=== PATIENT | female | born 1990 | race American Indian/Alaskan Native ===

== ENCOUNTER 2016-04-24 04:20 | Inpatient (IN) | payer SELFPAY ==
[2016-04-24] MEDS ORDERED: ZOFRAN ODT ONE (04:35)
[2016-04-24 09:20] LABS: Alanine Aminotransferase 14 units/L (7-56); Albumin 3.8 g/dL (3.9-5); Albumin/Globulin Ratio 1.1 %; Alkaline Phosphatase 51 units/L (35-129); Amylase 97 units/L (27-131); BUN/Creatinine Ratio 13.33; Bilirubin,Total 0.6 mg/dL (0.1-1.2); Blood Urea Nitrogen 12 mg/dL (7-17); Carbon Dioxide 22 mmol/L (22-30); Chloride 99.5 mmol/L (98-107); Glucose 134 mg/dL (65-100); Potassium 3.7 mmol/L (3.6-5.0); Sodium 138 mmol/L (137-145); Total Protein 7.2 g/dL (6.3-8.2)
[2016-04-24 09:21] LABS: Anion Gap 20 mmol/L
[2016-04-24 09:33] LABS: Basophils % (Auto) 0.1 % (0.0-1.8); Eosinophils % (Auto) 0.2 % (0.0-4.3); Hematocrit 36.4 % (30.3-42.9); Mean Corpuscular HGB Conc 33 % (30-34); Mean Corpuscular Hemoglobin 30 pg (28-32); Mean Corpuscular Volume 90 fl (79-97); Platelet Count 277 K/mm3 (140-440); Red Blood Count 4.05 M/mm3 (3.65-5.03); Red Cell Distribution Width 14.4 % (13.2-15.2); White Blood Count 16.6 K/mm3 (4.5-11.0)
[2016-04-24 09:34] LABS: Bilirubin,Direct < 0.2 mg/dL (0-0.2); Bilirubin,Indirect 0.4 mg/dL
[2016-04-24 10:23] LABS: Bilirubin,Urine NEG (Negative); Blood,Urine NEG (Negative); Ketones,Urine 80 mg/dL (Negative); Leukocyte Esterase,Urine NEG (Negative); Mucus,Urine 3+ /HPF; Nitrite,Urine NEG (Negative); Urobilinogen,Urine < 2.0 mg/dL (<2.0)
[2016-04-24] MEDS ORDERED: DILAUDID IV ONE ×2 (11:03→12:40)
[2016-04-24] MEDS ORDERED: NACL 0.9% 1000 ML 1,000 ML IV ONE ×2 (11:03→14:02)
--- NOTE | 2016-04-24 11:05 | Emergency Department Report ---
ED General Adult HPI - General Chief complaint: Nausea/Vomiting/Diarrhea Time Seen by Provider: 04/24/16 10:54 Source: patient, family Mode of arrival: Wheelchair Limitations: No Limitations - History of Present Illness Initial comments: This is a 26-year-old female. She is previously unknown to me. Has a very distant history of chlamydia, which is diagnosed in 2003, on routine physical exam. The patient also has a past medical history ovarian cyst. The patient presents to the ER complaining of abdominal pain. Abdominal pain is in the left lower quadrant, suprapubic and right lower quadrant region. She describes it as sharp and shaking in nature. Mild nausea and vomiting. No fevers or chills. No chest pain or shortness of breath. No irritative or obstructive urinary symptoms. States this is different pain than when compared to her prior episodes of ovarian cysts. The patient reports that she is sexually active with 1 male partner. Denies a history of dyspareunia with said partner. -: Gradual Location: abdomen, pelvis Severity scale (0 -10): 7 Quality: aching Consistency: constant Improves with: medication, rest Worsens with: movement Associated Symptoms: loss of appetite, malaise, nausea/vomiting. denies: confusion, chest pain, cough, diaphoresis, fever/chills, shortness of breath, syncope, weakness - Related Data Allergies Allergy/AdvReac Type Severity Reaction Status Date / Time aspirin Allergy Anaphylaxis Verified 04/24/16 06:40 ibuprofen [From Motrin] Allergy Unknown Verified 04/24/16 06:40 naproxen [From Naprosyn] Allergy Vomiting Verified 04/24/16 06:40 vancomycin Allergy Unknown Verified 04/24/16 06:40 ED Review of Systems ROS: Stated complaint: Other details as noted in HPI Constitutional: malaise, weakness Eyes: denies: vision change ENT: denies: epistaxis Respiratory: denies: cough Cardiovascular: denies: palpitations Gastrointestinal: abdominal pain, nausea, vomiting Genitourinary: denies: urgency, dysuria Musculoskeletal: denies: back pain Skin: denies: lesions Neurological: denies: weakness Psychiatric: denies: anxiety ED Past Medical Hx - Past Medical History Hx Asthma: Yes - Surgical History Past Surgical History?: No ED Physical Exam - General Limitations: No Limitations General appearance: alert, in no apparent distress - Head Head exam: Present: atraumatic, normocephalic - Eye Eye exam: Present: normal appearance, PERRL, EOMI. Absent: nystagmus - ENT ENT exam: Present: normal exam, normal orophraynx, mucous membranes moist - Neck Neck exam: Present: normal inspection, full ROM. Absent: tenderness, meningismus - Respiratory Respiratory exam: Present: normal lung sounds bilaterally. Absent: respiratory distress, wheezes, rales, chest wall tenderness, accessory muscle use, decreased breath sounds - Cardiovascular Cardiovascular Exam: Present: regular rate, normal rhythm, normal heart sounds. Absent: bradycardia, tachycardia, systolic murmur, diastolic murmur, rubs, gallop - GI/Abdominal GI/Abdominal exam: Present: soft, tenderness, normal bowel sounds. Absent: distended, guarding, rebound, rigid, pulsatile mass - External exam: Present: normal external exam Speculum exam: Present: vaginal discharge, cervical discharge Bi-manual exam: Present: cervical motion tendernes, adnexal tenderness, uterine tenderness, other (there is cervical motion tenderness, bilateral adnexal tenderness) - Extremities Exam Extremities exam: Present: normal inspection, full ROM, normal capillary refill. Absent: tenderness, pedal edema, joint swelling, calf tenderness - Back Exam Back exam: Present: normal inspection, full ROM. Absent: tenderness, CVA tenderness (R), CVA tenderness (L), muscle spasm, paraspinal tenderness, vertebral tenderness - Neurological Exam Neurological exam: Present: alert, oriented X3, other (Extraocular movements intact. Tongue midline. No facial droop. Facial sensation intact to light touch in the V1, V2, V3 distribution bilaterally. 5 and 5 strength in 4 extremities.. Sensation is intact to light touch in 4 extremities.). Absent: motor sensory deficit - Psychiatric Psychiatric exam: Present: normal affect, normal mood - Skin Skin exam: Present: warm, dry, intact, normal color. Absent: rash ED Course Vital Signs 04/24/16 04/24/16 04/24/16 06:34 10:11 10:12 Temperature 98.4 F Pulse Rate 91 H 89 64 Respiratory 22 11 L 11 L Rate Blood Pressure 126/90 119/68 O2 Sat by Pulse 100 98 100 Oximetry 04/24/16 04/24/16 04/24/16 10:13 10:15 10:17 Temperature Pulse Rate 68 71 81 Respiratory 11 L 9 L 23 Rate Blood Pressure 119/68 107/58 107/58 O2 Sat by Pulse 100 99 97 Oximetry 04/24/16 04/24/16 04/24/16 10:19 10:27 10:29 Temperature 98.3 F Pulse Rate 75 Respiratory 16 16 Rate Blood Pressure 107/58 O2 Sat by Pulse 98 98 Oximetry 04/24/16 04/24/16 04/24/16 10:45 10:47 10:49 Temperature Pulse Rate 88 91 H 75 Respiratory 26 H 18 12 Rate Blood Pressure 98/56 98/56 98/56 O2 Sat by Pulse 98 99 Oximetry 04/24/16 04/24/16 04/24/16 10:51 10:53 10:55 Temperature Pulse Rate 91 H 125 H 75 Respiratory 11 L 11 L 12 Rate Blood Pressure 98/56 98/56 98/56 O2 Sat by Pulse 99 98 100 Oximetry 04/24/16 04/24/16 04/24/16 10:57 10:59 11:00 Temperature Pulse Rate 76 76 Respiratory 14 24 Rate Blood Pressure 98/56 98/56 123/72 O2 Sat by Pulse 99 99 97 Oximetry 04/24/16 04/24/16 04/24/16 11:01 11:03 11:05 Temperature Pulse Rate Respiratory Rate Blood Pressure 123/72 123/72 123/72 O2 Sat by Pulse 98 99 100 Oximetry 04/24/16 04/24/16 04/24/16 11:07 11:09 11:11 Temperature Pulse Rate Respiratory Rate Blood Pressure 123/72 123/72 123/72 O2 Sat by Pulse 99 98 97 Oximetry 04/24/16 04/24/16 04/24/16 11:13 11:15 11:17 Temperature Pulse Rate Respiratory Rate Blood Pressure 123/72 123/72 123/72 O2 Sat by Pulse 98 100 98 Oximetry 04/24/16 04/24/16 04/24/16 11:19 11:21 11:23 Temperature Pulse Rate Respiratory Rate Blood Pressure 123/72 123/72 147/78 O2 Sat by Pulse 95 100 100 Oximetry 04/24/16 04/24/16 04/24/16 11:25 11:27 11:29 Temperature Pulse Rate Respiratory Rate Blood Pressure 147/78 147/78 147/78 O2 Sat by Pulse 95 94 92 Oximetry 04/24/16 04/24/16 04/24/16 11:31 11:33 11:35 Temperature Pulse Rate Respiratory Rate Blood Pressure 147/78 147/78 147/78 O2 Sat by Pulse 100 98 94 Oximetry 04/24/16 04/24/16 04/24/16 11:37 12:30 12:31 Temperature Pulse Rate 56 L 62 Respiratory 11 L 9 L Rate Blood Pressure 147/78 120/70 120/70 O2 Sat by Pulse 98 99 99 Oximetry 04/24/16 04/24/16 04/24/16 12:33 12:35 12:37 Temperature Pulse Rate 63 70 68 Respiratory 19 15 13 Rate Blood Pressure 120/70 120/70 120/70 O2 Sat by Pulse 98 97 96 Oximetry 04/24/16 04/24/16 04/24/16 12:39 12:41 12:42 Temperature Pulse Rate 69 65 70 Respiratory 14 13 14 Rate Blood Pressure 120/70 120/70 120/70 O2 Sat by Pulse 96 96 99 Oximetry 04/24/16 04/24/16 04/24/16 12:43 15:17 15:19 Temperature Pulse Rate 73 Respiratory 16 13 Rate Blood Pressure 120/70 113/61 113/61 O2 Sat by Pulse 100 100 Oximetry 04/24/16 04/24/16 04/24/16 15:21 15:23 15:25 Temperature Pulse Rate 61 59 L 68 Respiratory 12 11 L 16 Rate Blood Pressure 113/61 113/61 113/61 O2 Sat by Pulse 99 100 100 Oximetry 04/24/16 04/24/16 04/24/16 15:27 15:29 15:31 Temperature Pulse Rate 61 61 79 Respiratory 8 L 11 L 13 Rate Blood Pressure 113/61 113/61 113/61 O2 Sat by Pulse 100 100 100 Oximetry 04/24/16 04/24/16 04/24/16 15:33 15:35 15:37 Temperature Pulse Rate 73 69 59 L Respiratory 10 L 16 12 Rate Blood Pressure 113/61 113/61 113/61 O2 Sat by Pulse 99 100 100 Oximetry 04/24/16 04/24/16 04/24/16 15:39 15:41 15:43 Temperature Pulse Rate 70 62 62 Respiratory 12 12 13 Rate Blood Pressure 113/61 113/61 113/61 O2 Sat by Pulse 100 100 100 Oximetry 04/24/16 04/24/16 04/24/16 15:45 15:47 15:49 Temperature Pulse Rate 62 63 70 Respiratory 15 13 10 L Rate Blood Pressure 113/61 120/70 120/70 O2 Sat by Pulse 97 99 100 Oximetry 04/24/16 04/24/16 04/24/16 15:51 15:53 15:55 Temperature Pulse Rate 69 74 72 Respiratory 10 L 11 L 12 Rate Blood Pressure 120/70 120/70 120/70 O2 Sat by Pulse 99 100 99 Oximetry 04/24/16 04/24/16 04/24/16 15:57 15:59 16:01 Temperature Pulse Rate 71 66 65 Respiratory 13 12 11 L Rate Blood Pressure 120/70 120/70 120/70 O2 Sat by Pulse 100 100 100 Oximetry 04/24/16 04/24/16 04/24/16 16:03 16:05 16:07 Temperature Pulse Rate 77 71 66 Respiratory 17 12 13 Rate Blood Pressure 120/70 120/70 120/70 O2 Sat by Pulse 99 98 100 Oximetry 04/24/16 04/24/16 04/24/16 16:09 16:11 16:13 Temperature Pulse Rate 69 70 74 Respiratory 12 14 15 Rate Blood Pressure 120/70 120/70 120/70 O2 Sat by Pulse 99 99 100 Oximetry 04/24/16 04/24/16 04/24/16 16:15 16:17 16:19 Temperature Pulse Rate 75 70 70 Respiratory 14 13 10 L Rate Blood Pressure 120/70 120/70 120/70 O2 Sat by Pulse 99 99 98 Oximetry 04/24/16 04/24/16 04/24/16 16:21 16:23 16:25 Temperature Pulse Rate 77 73 75 Respiratory 24 19 15 Rate Blood Pressure 120/70 120/70 120/70 O2 Sat by Pulse 100 99 99 Oximetry 04/24/16 04/24/16 04/24/16 16:27 16:29 16:31 Temperature Pulse Rate 75 73 72 Respiratory 18 18 19 Rate Blood Pressure 120/70 120/70 120/70 O2 Sat by Pulse 99 97 98 Oximetry - Reevaluation(s) Reevaluation #1: 04/24/16 12:55 Vital Signs 04/24/16 04/24/16 04/24/16 06:34 10:11 10:12 Temperature 98.4 F Pulse Rate 91 H 89 64 Respiratory 22 11 L 11 L Rate Blood Pressure 126/90 119/68 O2 Sat by Pulse 100 98 100 Oximetry 04/24/16 04/24/16 04/24/16 10:13 10:15 10:17 Temperature Pulse Rate 68 71 81 Respiratory 11 L 9 L 23 Rate Blood Pressure 119/68 107/58 107/58 O2 Sat by Pulse 100 99 97 Oximetry 04/24/16 04/24/16 04/24/16 10:19 10:27 10:29 Temperature 98.3 F Pulse Rate 75 Respiratory 16 16 Rate Blood Pressure 107/58 O2 Sat by Pulse 98 98 Oximetry Lab Results 04/24/16 04/24/16 04/24/16 Range/Units 04:40 04:40 09:23 WBC (4.5-11.0) K/mm3 RBC (3.65-5.03) M/mm3 Hgb (10.1-14.3) gm/dl Hct (30.3-42.9) % MCV (79-97) fl MCH (28-32) pg MCHC (30-34) % RDW (13.2-15.2) % Plt Count (140-440) K/mm3 Lymph % (Auto) (13.4-35.0) % Lares % (Auto) (0.0-7.3) % Eos % (Auto) (0.0-4.3) % Baso % (Auto) (0.0-1.8) % Lymph # (1.2-5.4) K/mm3 Lares # (0.0-0.8) K/mm3 Eos # (0.0-0.4) K/mm3 Baso # (0.0-0.1) K/mm3 Seg Neutrophils % (40.0-70.0) % Seg Neutrophils # (1.8-7.7) K/mm3 Sodium 138 (137-145) mmol/L Potassium 3.7 (3.6-5.0) mmol/L Chloride 99.5 (98-107) mmol/L Carbon Dioxide 22 (22-30) mmol/L Anion Gap 20 mmol/L BUN 12 (7-17) mg/dL Creatinine 0.9 (0.7-1.2) mg/dL Estimated GFR > 60 ml/min BUN/Creatinine Ratio 13.33 % Glucose 134 H (65-100) mg/dL Lactic Acid (0.7-2.0) mmol/L Calcium 9.0 (8.4-10.2) mg/dL Total Bilirubin 0.6 (0.1-1.2) mg/dL Direct Bilirubin < 0.2 (0-0.2) mg/dL Indirect Bilirubin 0.4 mg/dL AST 21 (5-40) units/L ALT 14 (7-56) units/L Alkaline Phosphatase 51 (35-129) units/L Total Protein 7.2 (6.3-8.2) g/dL Albumin 3.8 L (3.9-5) g/dL Albumin/Globulin Ratio 1.1 % Amylase 97 (27-131) units/L Lipase 17 (13-60) units/L Urine Color Yellow (Yellow) Urine Turbidity Clear (Clear) Urine pH 6.0 (5.0-7.0) Ur Specific [place] 1.027 (1.003-1.030) Urine Protein 30 mg/dl (Negative) mg/dL Urine Glucose (UA) Neg (Negative) mg/dL Urine Ketones 80 (Negative) mg/dL Urine Blood Neg (Negative) Urine Nitrite Neg (Negative) Urine Bilirubin Neg (Negative) Urine Urobilinogen < 2.0 (<2.0) mg/dL Ur Leukocyte Esterase Neg (Negative) Urine WBC (Auto) 2.0 (0.0-6.0) /HPF Urine RBC (Auto) 8.0 (0.0-6.0) /HPF U Epithel Cells (Auto) 2.0 (0-13.0) /HPF Urine Mucus 3+ /HPF Urine HCG, Qual (Negative) 04/24/16 04/24/16 04/24/16 Range/Units 09:26 11:05 11:15 WBC 16.6 H (4.5-11.0) K/mm3 RBC 4.05 (3.65-5.03) M/mm3 Hgb 12.0 (10.1-14.3) gm/dl Hct 36.4 (30.3-42.9) % MCV 90 (79-97) fl MCH 30 (28-32) pg MCHC 33 (30-34) % RDW 14.4 (13.2-15.2) % Plt Count 277 (140-440) K/mm3 Lymph % (Auto) 6.5 L (13.4-35.0) % Lares % (Auto) 5.9 (0.0-7.3) % Eos % (Auto) 0.2 (0.0-4.3) % Baso % (Auto) 0.1 (0.0-1.8) % Lymph # 1.1 L (1.2-5.4) K/mm3 Lares # 1.0 H (0.0-0.8) K/mm3 Eos # 0.0 (0.0-0.4) K/mm3 Baso # 0.0 (0.0-0.1) K/mm3 Seg Neutrophils % 87.3 H (40.0-70.0) % Seg Neutrophils # 14.5 H (1.8-7.7) K/mm3 Sodium (137-145) mmol/L Potassium (3.6-5.0) mmol/L Chloride (98-107) mmol/L Carbon Dioxide (22-30) mmol/L Anion Gap mmol/L BUN (7-17) mg/dL Creatinine (0.7-1.2) mg/dL Estimated GFR ml/min BUN/Creatinine Ratio % Glucose (65-100) mg/dL Lactic Acid 1.0 (0.7-2.0) mmol/L Calcium (8.4-10.2) mg/dL Total Bilirubin (0.1-1.2) mg/dL Direct Bilirubin (0-0.2) mg/dL Indirect Bilirubin mg/dL AST (5-40) units/L ALT (7-56) units/L Alkaline Phosphatase (35-129) units/L Total Protein (6.3-8.2) g/dL Albumin (3.9-5) g/dL Albumin/Globulin Ratio % Amylase (27-131) units/L Lipase (13-60) units/L Urine Color (Yellow) Urine Turbidity (Clear) Urine pH (5.0-7.0) Ur Specific [place] (1.003-1.030) Urine Protein (Negative) mg/dL Urine Glucose (UA) (Negative) mg/dL Urine Ketones (Negative) mg/dL Urine Blood (Negative) Urine Nitrite (Negative) Urine Bilirubin (Negative) Urine Urobilinogen (<2.0) mg/dL Ur Leukocyte Esterase (Negative) Urine WBC (Auto) (0.0-6.0) /HPF Urine RBC (Auto) (0.0-6.0) /HPF U Epithel Cells (Auto) (0-13.0) /HPF Urine Mucus /HPF Urine HCG, Qual Negative (Negative) Reevaluation #2: 04/24/16 12:55 and differential diagnosis: Pelvic inflammatory disease, ovarian cyst, ovarian torsion, tubo-ovarian abscess, appendicitis, colitis, diverticulitis, endometriosis Assessment and plan: 26-year-old female with mild diffuse abdominal pain and tenderness, bilateral gynecologic tenderness. Negative lactic acid, negative leukocytosis, pelvic ultrasound not consistent with torsion. Given normal lactic acid level, bilateral physical exam findings, normal pelvic ultrasound, clinically I think that ovarian torsion is very unlikely. wet prep did not demonstrate trichomoniasis. CT scan abdomen and pelvis is pending to exclude surgical disease. Patient's pain has been treated aggressively. Unfortunately, the patient is allergic/ intolerance to NSAIDs. That being said, I am very suspicious for pelvic inflammatory disease 04/24/16 12:59 Reevaluation #3: 04/24/16 13:58 CT scan of the abdomen and pelvis demonstrates no acute surgical disease. The appendix itself was not clearly identified, but there are no secondary signs of appendicitis. Patient has received multiple rounds of pain medication. She is still markedly tender, with some voluntary guarding. I highly suspect that the patient's most likely has pelvic inflammatory disease. However given physical exam findings, leukocytosis, inconclusive diagnostics, patient will be admitted for pain control, serial abdominal exams, Gen. surgery consultation and customer relationship specialist consultation Case is discussed with general surgery on-call, Dr. Vega, who will see the patient is a consult. Case is discussed with gynecology, Dr. Obando, she graciously accepts the patient to her service. Gentamicin, clindamycin, ampicillin 04/24/16 14:01 04/24/16 14:38 04/24/16 14:44 04/24/16 14:58 ED Medical Decision Making - Lab Data Result diagrams: 04/24/16 09:26 04/24/16 04:40 Vital Signs 04/24/16 04/24/16 04/24/16 06:34 10:11 10:12 Temperature 98.4 F Pulse Rate 91 H 89 64 Respiratory 22 11 L 11 L Rate Blood Pressure 126/90 119/68 O2 Sat by Pulse 100 98 100 Oximetry 0304/24/16 04/24/16 10:13 10:15 10:17 Temperature Pulse Rate 68 71 81 Respiratory 11 L 9 L 23 Rate Blood Pressure 119/68 107/58 107/58 O2 Sat by Pulse 100 99 97 Oximetry 04/24/16 04/24/16 04/24/16 10:19 10:27 10:29 Temperature 98.3 F Pulse Rate 75 Respiratory 16 16 Rate Blood Pressure 107/58 O2 Sat by Pulse 98 98 Oximetry Lab Results 04/24/16 04/24/16 04/24/16 Range/Units 04:40 04:40 09:23 WBC (4.5-11.0) K/mm3 RBC (3.65-5.03) M/mm3 Hgb (10.1-14.3) gm/dl Hct (30.3-42.9) % MCV (79-97) fl MCH (28-32) pg MCHC (30-34) % RDW (13.2-15.2) % Plt Count (140-440) K/mm3 Lymph % (Auto) (13.4-35.0) % Lares % (Auto) (0.0-7.3) % Eos % (Auto) (0.0-4.3) % Baso % (Auto) (0.0-1.8) % Lymph # (1.2-5.4) K/mm3 Lares # (0.0-0.8) K/mm3 Eos # (0.0-0.4) K/mm3 Baso # (0.0-0.1) K/mm3 Seg Neutrophils % (40.0-70.0) % Seg Neutrophils # (1.8-7.7) K/mm3 Sodium 138 (137-145) mmol/L Potassium 3.7 (3.6-5.0) mmol/L Chloride 99.5 (98-107) mmol/L Carbon Dioxide 22 (22-30) mmol/L Anion Gap 20 mmol/L BUN 12 (7-17) mg/dL Creatinine 0.9 (0.7-1.2) mg/dL Estimated GFR > 60 ml/min BUN/Creatinine Ratio 13.33 % Glucose 134 H (65-100) mg/dL Lactic Acid (0.7-2.0) mmol/L Calcium 9.0 (8.4-10.2) mg/dL Total Bilirubin 0.6 (0.1-1.2) mg/dL Direct Bilirubin < 0.2 (0-0.2) mg/dL Indirect Bilirubin 0.4 mg/dL AST 21 (5-40) units/L ALT 14 (7-56) units/L Alkaline Phosphatase 51 (35-129) units/L Total Protein 7.2 (6.3-8.2) g/dL Albumin 3.8 L (3.9-5) g/dL Albumin/Globulin Ratio 1.1 % Amylase 97 (27-131) units/L Lipase 17 (13-60) units/L Urine Color Yellow (Yellow) Urine Turbidity Clear (Clear) Urine pH 6.0 (5.0-7.0) Ur Specific [place] 1.027 (1.003-1.030) Urine Protein 30 mg/dl (Negative) mg/dL Urine Glucose (UA) Neg (Negative) mg/dL Urine Ketones 80 (Negative) mg/dL Urine Blood Neg (Negative) Urine Nitrite Neg (Negative) Urine Bilirubin Neg (Negative) Urine Urobilinogen < 2.0 (<2.0) mg/dL Ur Leukocyte Esterase Neg (Negative) Urine WBC (Auto) 2.0 (0.0-6.0) /HPF Urine RBC (Auto) 8.0 (0.0-6.0) /HPF U Epithel Cells (Auto) 2.0 (0-13.0) /HPF Urine Mucus 3+ /HPF Urine HCG, Qual (Negative) 04/24/16 04/24/16 04/24/16 Range/Units 09:26 11:05 11:15 WBC 16.6 H (4.5-11.0) K/mm3 RBC 4.05 (3.65-5.03) M/mm3 Hgb 12.0 (10.1-14.3) gm/dl Hct 36.4 (30.3-42.9) % MCV 90 (79-97) fl MCH 30 (28-32) pg MCHC 33 (30-34) % RDW 14.4 (13.2-15.2) % Plt Count 277 (140-440) K/mm3 Lymph % (Auto) 6.5 L (13.4-35.0) % Lares % (Auto) 5.9 (0.0-7.3) % Eos % (Auto) 0.2 (0.0-4.3) % Baso % (Auto) 0.1 (0.0-1.8) % Lymph # 1.1 L (1.2-5.4) K/mm3 Lares # 1.0 H (0.0-0.8) K/mm3 Eos # 0.0 (0.0-0.4) K/mm3 Baso # 0.0 (0.0-0.1) K/mm3 Seg Neutrophils % 87.3 H (40.0-70.0) % Seg Neutrophils # 14.5 H (1.8-7.7) K/mm3 Sodium (137-145) mmol/L Potassium (3.6-5.0) mmol/L Chloride (98-107) mmol/L Carbon Dioxide (22-30) mmol/L Anion Gap mmol/L BUN (7-17) mg/dL Creatinine (0.7-1.2) mg/dL Estimated GFR ml/min BUN/Creatinine Ratio % Glucose (65-100) mg/dL Lactic Acid 1.0 (0.7-2.0) mmol/L Calcium (8.4-10.2) mg/dL Total Bilirubin (0.1-1.2) mg/dL Direct Bilirubin (0-0.2) mg/dL Indirect Bilirubin mg/dL AST (5-40) units/L ALT (7-56) units/L Alkaline Phosphatase (35-129) units/L Total Protein (6.3-8.2) g/dL Albumin (3.9-5) g/dL Albumin/Globulin Ratio % Amylase (27-131) units/L Lipase (13-60) units/L Urine Color (Yellow) Urine Turbidity (Clear) Urine pH (5.0-7.0) Ur Specific [place] (1.003-1.030) Urine Protein (Negative) mg/dL Urine Glucose (UA) (Negative) mg/dL Urine Ketones (Negative) mg/dL Urine Blood (Negative) Urine Nitrite (Negative) Urine Bilirubin (Negative) Urine Urobilinogen (<2.0) mg/dL Ur Leukocyte Esterase (Negative) Urine WBC (Auto) (0.0-6.0) /HPF Urine RBC (Auto) (0.0-6.0) /HPF U Epithel Cells (Auto) (0-13.0) /HPF Urine Mucus /HPF Urine HCG, Qual Negative (Negative) - Radiology Data Radiology results: report reviewed, image reviewed Transvaginal ultrasound unremarkable. No evidence of ovarian torsion. No fibroids are noted. CT scan of the abdomen and pelvis with IV contrast. No definite evidence of appendicitis or other acute findings. bi lateral cystic changes are noted in the adnexa. Moderate volume of stool throughout the colon and cecum. The appendix is not definitely identified, but no radial graphic signs of appendicitis identified. Critical care attestation.: If time is entered above; I have spent that time in minutes in the direct care of this critically ill patient, excluding procedure time. ED Disposition Clinical Impression: Abdominal pain Disposition: OP ADMITTED IP TO THIS HOSP Is pt being admited?: Yes Does the pt Need Aspirin: No Condition: Good
--- NOTE | 2016-04-24 12:25 | Ultrasound Report ---
ULTRASOUND PELVIC COMPLETE ULTRASOUND TRANSVAGINAL HISTORY: Pelvic pain. TECHNIQUE: Transabdominal and transvaginal ultrasound with color and spectral doppler interrogation. Longitudinal and transverse real-time images of the pelvis demonstrate that the uterus and ovaries are present and in a normal location. They are of normal echogenicity, contour and size. The endometrium measures 9 mm. No pathologic changes in the adjacent tissues are noted. Spectral waveforms demonstrate perfusion to both ovaries. IMPRESSION: Unremarkable transabdominal and transvaginal pelvic ultrasounds.
--- NOTE | 2016-04-24 13:43 | Cat Scan Report ---
CT of the abdomen and pelvis with IV contrast. History: Abdominal pain, nausea, and vomiting. Findings: The liver, spleen, pancreas, and gallbladder are normal. The kidneys are normal in size and configuration with no evidence of mass or hydronephrosis. The uterus is slightly prominent and there are cystic changes in the adnexa bilaterally. No abnormal fluid collections are seen. The there is a moderate volume of stool throughout the colon especially in the cecum. There is a paucity of retroperitoneal fat. The appendix is not definitely identified, but no radiographic signs of appendicitis are seen. Impression: Suboptimal evaluation of the right lower quadrant as detailed above. No definite evidence of appendicitis or other acute findings. Please correlate clinically. 2. Bilateral cystic changes in the adnexa.
[2016-04-24] MEDS ORDERED: VIBRAMYCIN PO ONE ×2 (13:56→14:45)
--- NOTE | 2016-04-24 14:19 | Admit Criteria Form ---
Admission Criteria Documentation: ABDOMINAL PAIN Clinical Indications for Admission to Inpatient Care (Place 'X' for any and all applicable criteria): Admission is indicated for ANY ONE of the following(1)(2)(3)(4)(5): [ X]I. Inpatient admission required rather than observation care (Also use Abdominal Pain: Observation Care, as appropriate) because of ANY ONE of the following: [X ]a) Severe pain requiring acute inpatient management [ ]b) Identification of etiology/finding that requires inpatient care (eg, aortic dissection, free air) [ ]c) Absent bowel sounds with complete ileus(6) [ ]d) Suspected toxic megacolon [ ]e) Severe electrolyte abnormalities requiring inpatient care [ ]f) High fever or infection requiring inpatient admission as indicated by ANY ONE of following(7)(8): [ ] i) Appropriate outpatient or observational care antimicrobial treatment unavailable, not effective, or not feasible [ ] ii) Documented bacteremia [ ] iii) Temperature > 104.9 degrees F (oral) [ ] iv) T >103.1 F (oral) or < 96.8 F(rectal) that does not respond to all emergency treatment measures [ ]g) Signs of intestinal obstruction [B] [ ]h) Hemodynamic instability [ ]i) IV fluid to replace significant ongoing losses (greater than 3 L/m2 per day) (12)(13) [ ]j) Percutaneous or open drainage (eg, abscess, biliary tract ) procedures [ ]k) Parenteral nutrition regimen that must be implemented on inpatient basis [ ]l) Other condition,treatment or monitoring requiring inpatient admission. [ ]II. Peritoneal signs present [ ]III. Surgery needed that cannot be performed on an ambulatory basis. [ ]IV. Evaluation requires patient to not eat or drink for extended period ( eg, more than 24 hours). [ ]V. Contraindications and/or Inappropriate clinical situations for Observational Care in patients with abdominal pain, when ANY ONE of the following is required: [ ]a) Thorough evaluation is required to prevent catastrophic events due to delays in diagnosing (e.g.Mesenteric ischemia) 1,3 [ ]b) Patient with severe pathology or with chronic symptoms unlikely to improve in the ED stay (3) [ ]. General contraindications and/or Inappropriate clinical situations for Observational Care in patients with abdominal pain, when ANY ONE of the following is required: [ ]a) Prediction of prolongation of LOS based on ANY ONE of the following may be considered as a contraindication for observational care 2, 3, 4, 5, 6, 7, 8, 9, 10, 11 [ ]i) Age > 65 yrs. [ ]ii) Patient arriving by ambulance [ ]iii) Patient with high acuity [ ]iv) Patient requiring vital sign monitoring [ ]v) Patient on IV medication [ ]b) Systolic blood pressures 180mmHg 3,12 [ ]c) Patient with altered mental status including delirium and other alteration of consciousness, (3) [ ]d) Patient whose discharge disposition will be to a intermediate home or rehabilitation home should not be managed in Emergency Department Observation Unit. CMS rule requires 3 days hospital stay before such placement.3,13 [ ]e) Patient with failure to thrive due to broad array of etiologies 3,16,17 [ ]f) Inability to ambulate 3,14 Extended stay beyond goal length of stay may be needed for(2)(3): [ ]a) Persistent abdominal pain with suspected intra-abdominal process [ ]b) Diagnosed condition requiring continued stay (e.g., pancreatitis, complicated diverticulitis) [ ]c) Surgery (e.g., colectomy) The original [facility] content created by [employer] has been revised. The portions of the content which have been revised are identified through the use of italic text or in bold, and [facility] has neither reviewed nor approved the modified material.All other unmodified content is copyright [facility]. Please see references footnoted in the original [facility] edition 2016 Admission Criteria Met: Yes
--- NOTE | 2016-04-24 14:20 | Admit Criteria Form ---
Admission Criteria Documentation: ABDOMINAL PAIN Clinical Indications for Admission to Inpatient Care (Place 'X' for any and all applicable criteria): Admission is indicated for ANY ONE of the following(1)(2)(3)(4)(5): [ X]I. Inpatient admission required rather than observation care (Also use Abdominal Pain: Observation Care, as appropriate) because of ANY ONE of the following: [X ]a) Severe pain requiring acute inpatient management [X ]b) Identification of etiology/finding that requires inpatient care (eg, aortic dissection, free air) [ ]c) Absent bowel sounds with complete ileus(6) [ ]d) Suspected toxic megacolon [ ]e) Severe electrolyte abnormalities requiring inpatient care [ ]f) High fever or infection requiring inpatient admission as indicated by ANY ONE of following(7)(8): [ ] i) Appropriate outpatient or observational care antimicrobial treatment unavailable, not effective, or not feasible [ ] ii) Documented bacteremia [ ] iii) Temperature > 104.9 degrees F (oral) [ ] iv) T >103.1 F (oral) or < 96.8 F(rectal) that does not respond to all emergency treatment measures [ ]g) Signs of intestinal obstruction [B] [ ]h) Hemodynamic instability [ ]i) IV fluid to replace significant ongoing losses (greater than 3 L/m2 per day) (12)(13) [ ]j) Percutaneous or open drainage (eg, abscess, biliary tract ) procedures [ ]k) Parenteral nutrition regimen that must be implemented on inpatient basis [ ]l) Other condition,treatment or monitoring requiring inpatient admission. [ ]II. Peritoneal signs present [ ]III. Surgery needed that cannot be performed on an ambulatory basis. [ ]IV. Evaluation requires patient to not eat or drink for extended period ( eg, more than 24 hours). [ ]V. Contraindications and/or Inappropriate clinical situations for Observational Care in patients with abdominal pain, when ANY ONE of the following is required: [ ]a) Thorough evaluation is required to prevent catastrophic events due to delays in diagnosing (e.g.Mesenteric ischemia) 1,3 [ ]b) Patient with severe pathology or with chronic symptoms unlikely to improve in the ED stay (3) [ ]. General contraindications and/or Inappropriate clinical situations for Observational Care in patients with abdominal pain, when ANY ONE of the following is required: [ ]a) Prediction of prolongation of LOS based on ANY ONE of the following may be considered as a contraindication for observational care 2, 3, 4, 5, 6, 7, 8, 9, 10, 11 [ ]i) Age > 65 yrs. [ ]ii) Patient arriving by ambulance [ ]iii) Patient with high acuity [ ]iv) Patient requiring vital sign monitoring [ ]v) Patient on IV medication [ ]b) Systolic blood pressures 180mmHg 3,12 [ ]c) Patient with altered mental status including delirium and other alteration of consciousness, (3) [ ]d) Patient whose discharge disposition will be to a [facility] home or rehabilitation home should not be managed in Emergency Department Observation Unit. CMS rule requires 3 days hospital stay before such placement.3,13 [ ]e) Patient with failure to thrive due to broad array of etiologies 3,16,17 [ ]f) Inability to ambulate 3,14 Extended stay beyond goal length of stay may be needed for(2)(3): [ ]a) Persistent abdominal pain with suspected intra-abdominal process [ ]b) Diagnosed condition requiring continued stay (e.g., pancreatitis, complicated diverticulitis) [ ]c) Surgery (e.g., colectomy) The original [facility] content created by [employer] has been revised. The portions of the content which have been revised are identified through the use of italic text or in bold, and [facility] has neither reviewed nor approved the modified material.All other unmodified content is copyright [facility]. Please see references footnoted in the original [facility] edition 2016
[2016-04-24] MEDS ORDERED: POLYCILLIN 2,000 MG in NACL 0.9% 50 ML IV ONE (14:35)
[2016-04-24] MEDS ORDERED: CLEOCIN 600 MG/50 mL 600 MG/50 ML BAG IV ONE (14:35)
[2016-04-24] MEDS ORDERED: GARAMYCIN 120 MG in NACL 0.9% 100 ML IV SCH (14:45)
[2016-04-24] MEDS ORDERED: GARAMYCIN 120 MG in NACL 0.9% 100 ML IV STA (14:56)
[2016-04-24] MEDS ORDERED: ROCEPHIN 250 MG in NACL 0.9% 50 ML IV ONE (14:56)
[2016-04-24] MEDS ORDERED: POLYCILLIN/NS 2 GM/100 ML 2 GM/100 ML BAG IV SCH (15:00)
[2016-04-24] MEDS ORDERED: NACL 0.9% IV SCH (15:00)
[2016-04-24] MEDS ORDERED: CLAFORAN IV SCH (15:00)
[2016-04-24] MEDS ORDERED: POLYCILLIN 2,000 MG in NACL 0.9% 50 ML IV SCH (15:00)
[2016-04-24] MEDS ORDERED: ZOFRAN IV ONE (15:09)
[2016-04-24] MEDS: CLEOCIN 900 MG/50 mL 900 MG/50 ML BAG IV SCH ×2 (15:23→23:59)
[2016-04-24] MEDS ORDERED: GARAMYCIN/NS 120MG/100ML 120 MG/100 ML BAG IV ONE (16:00)
[2016-04-24] MEDS ORDERED: ULTRAM ONE (16:48)
[2016-04-24] MEDS ORDERED: ULTRAM PO ONE (17:00)
[2016-04-24] MEDS: D5LR 1,000 ML IV SCH (19:10)
[2016-04-24] MEDS: GARAMYCIN 240 MG in NACL 0.9% 100 ML IV SCH (20:16)
--- NOTE | 2016-04-24 20:30 | History and Physical Report ---
History of Present Illness Date of examination: 04/24/16 Date of admission: 04/24/16 14:03 Chief complaint: abdominal pain History of present illness: This is a 26 yo LMP 04/05/16 came in to ER earlier this am at 4 am. Patient reports that she has had abdominal pain on the left with radiation to the right and suprapubic pain for less than 1 day. Patientt reports that she has had pain inthe past but not severe and has been dx with ovarian cyst in the past. She alos reports nausea and one time vomiting yesterday. patient admits to having some cramping pain with orgasm on Friday after having intercourse with partner. She aedmits to remote history of chlamydia and treated earlier in life. She has no other complaints. Past History Past Medical History: asthma Past Surgical History: section (2005 for oligo at 32 weeks ) [employer] History: chlamydia. denies: gonorrhea, hepatitis B, hepatitis C, herpes, HIV, syphilis, trichomonas Family/Genetic History: diabetes (dad), heart disease (dad), hypertension (dad) , other (fibroids ( mom)) Social history: single. denies: smoking, alcohol abuse Medications and Allergies Allergies Allergy/AdvReac Type Severity Reaction Status Date / Time aspirin Allergy Anaphylaxis Verified 04/24/16 06:40 ibuprofen [From Motrin] Allergy Unknown Verified 04/24/16 06:40 naproxen [From Naprosyn] Allergy Vomiting Verified 04/24/16 06:40 vancomycin Allergy Unknown Verified 04/24/16 06:40 Active Meds: Active Medications Acetaminophen/Hydrocodone Bitart ([place] 5/325) 1 each PO Q8H PRN PRN Reason: Pain, Moderate (4-6) Clindamycin HCl (Cleocin 900 Mg/50 Ml) 900 mg in 50 mls @ 100 mls/hr IV Q8H JOHNIE Last Admin: 04/24/16 15:23 Dose: 100 mls/hr Ampicillin Sodium (Polycillin/Ns 2 Gm/100 Ml) 2 gm in 100 mls @ 200 mls/hr IV Q6H JOHNIE Last Admin: 04/24/16 16:55 Dose: 200 mls/hr Dextrose/Lactated Ringer's (D5lr) 1,000 mls @ 75 mls/hr IV DIRECT JOHNIE Last Admin: 04/24/16 19:10 Dose: 75 mls/hr Gentamicin Sulfate 240 mg/ (Sodium Chloride) 106 mls @ 212 mls/hr IV Q24H JOHNIE Last Admin: 04/24/16 20:16 Dose: 212 mls/hr Morphine Sulfate (Morphine) 2 mg IV Q3H PRN PRN Reason: Pain Review of Systems Constitutional: no weight loss, no fever, no chills, no sweats, no night sweats , no weakness Eyes: deferred Ears, nose, mouth and throat: deferred Cardiovascular: no chest pain, no palpitations, no edema, no shortness of breath , no leg edema Respiratory: cough (has had a cold for 1 week ) Breasts: deferred Gastrointestinal: abdominal pain, nausea, vomiting Genitourinary: normal appearance, vaginal discharge, pelvic pain, no vaginal bleeding, no dysuria Rectal Exam: deferred Integumentary: deferred - Vital Signs Vital signs: Vital Signs Temp Pulse Resp BP Pulse Ox 98.4 F 91 H 22 126/90 100 04/24/16 06:34 04/24/16 06:34 04/24/16 06:34 04/24/16 06:34 04/24/16 06:34 Temp Pulse Resp BP Pulse Ox 97.9 F 63 20 141/78 98 04/24/16 18:50 04/24/16 18:50 04/24/16 18:50 04/24/16 18:50 04/24/16 16:31 - Physical Exam Breasts: Positive: normal Cardiovascular: Regular rate, Normal S1, Normal S2 Lungs: Positive: Clear to auscultation, Normal air movement Abdomen: Positive: normal appearance, soft, tenderness, normal bowel sounds. Negative: distention, hernia, mass, rigidity, organomegaly, inguinal adenopathy Vulva: both: normal Vagina: Positive: other (deferred secondary to previous report from ER) Uterus: Positive: normal size Adnexa: both: normal Anus/Rectum: Positive: normal perianal skin Extremities: Positive: normal Deep Tendon Reflex Grade: Normal +2 Results Result Diagrams: 04/24/16 09:26 04/24/16 04:40 All other labs normal. Ultrasound: report reviewed CT scan - abdomen: report reviewed CT scan - pelvis: report reviewed Assessment and Plan A/P HD#1 PID differential dx doubt TOA Plan 48 hrs IV antibiotics 1. will start IVF hydration 2. clind 900 mg IV Q6 , Gentamycin 240mg q24 hrs 3. Pain meds ( Morphin and norco ) 4. await cultures for GC 5. ondasetron for nausea 6. order CBC daily ( assess elevated WBC initial 16 WBC) 7. HIV testing 8. await surgery consult to assess for r/o appendicitis 9. continue to monitor pain 10. regular diet
[2016-04-24] MEDS: MORPHINE IV PRN (21:06)
[2016-04-25 00:34] LABS: HIV-1 Antigen p24 Non React (Non React); HIVR-1/2 Ab Non React (Non React)
[2016-04-25 06:28] LABS: Basophils % (Auto) 0.5 % (0.0-1.8); Eosinophils % (Auto) 2.9 % (0.0-4.3); Hematocrit 33.1 % (30.3-42.9); Hemoglobin 11.1 gm/dl (10.1-14.3); Mean Corpuscular HGB Conc 33 % (30-34); Mean Corpuscular Hemoglobin 30 pg (28-32); Mean Corpuscular Volume 90 fl (79-97); Platelet Count 230 K/mm3 (140-440); Red Cell Distribution Width 14.3 % (13.2-15.2); White Blood Count 6.6 K/mm3 (4.5-11.0)
[2016-04-25] MEDS: CLEOCIN 900 MG/50 mL 900 MG/50 ML BAG IV SCH ×3 (06:45→22:30)
[2016-04-25] MEDS: MORPHINE IV PRN ×3 (06:46→17:54)
[2016-04-25] MEDS: D5LR 1,000 ML IV SCH (08:40)
--- NOTE | 2016-04-25 09:29 | Progress Note ---
Assessment and Plan A/P HD#2 PID differential dx doubt TOA Plan 48 hrs IV antibiotics 1. will continue IVF hydration 2. clind 900 mg IV Q6 , Gentamycin 240mg q24 hrs D#2 3. Pain meds ( Morphin and norco ) 4. await cultures for GC 5. ondasetron for nausea 6. CBC decreasing WBC 7. HIV testing await 8. await surgery consult to assess for r/o appendicitis 9. continue to monitor pain 10. regular diet 11. consider d/c home with decrease trending WBC and afebrile with continuation of abx for 14 days Subjective - Subjective Interval history: This is a 26 yo LMP 04/05/16 came in to ER earlier this am at 4 am. Patient reports that she has had abdominal pain on the left with radiation to the right and suprapubic pain for less than 1 day. Patientt reports that she has had pain inthe past but not severe and has been dx with ovarian cyst in the past. She alos reports nausea and one time vomiting yesterday. patient admits to having some cramping pain with orgasm on Friday after having intercourse with partner. She aedmits to remote history of chlamydia and treated earlier in life. She has no other complaints. Patient reports: appetite normal, voiding normally, pain well controlled, flatus , ambulating normally Objective - Vital Signs Latest vital signs: Vital Signs Temp Pulse Pulse Resp BP BP Pulse Ox 04/25/16 08:35 20 04/25/16 05:00 98.2 F 58 L 20 134/80 04/24/16 23:18 97.5 F L 51 L 20 140/81 04/24/16 18:50 97.9 F 63 20 141/78 04/24/16 16:31 72 19 120/70 98 04/24/16 16:29 73 18 120/70 97 04/24/16 16:27 75 18 120/70 99 04/24/16 16:25 75 15 120/70 99 04/24/16 16:23 73 19 120/70 99 04/24/16 16:21 77 24 120/70 100 04/24/16 16:19 70 10 L 120/70 98 04/24/16 16:17 70 13 120/70 99 04/24/16 16:15 75 14 120/70 99 04/24/16 16:13 74 15 120/70 100 04/24/16 16:11 70 14 120/70 99 04/24/16 16:09 69 12 120/70 99 04/24/16 16:07 66 13 120/70 100 04/24/16 16:05 71 12 120/70 98 04/24/16 16:03 77 17 120/70 99 04/24/16 16:01 65 11 L 120/70 100 04/24/16 15:59 66 12 120/70 100 04/24/16 15:57 71 13 120/70 100 04/24/16 15:55 72 12 120/70 99 04/24/16 15:53 74 11 L 120/70 100 04/24/16 15:51 69 10 L 120/70 99 04/24/16 15:49 70 10 L 120/70 100 04/24/16 15:47 63 13 120/70 99 04/24/16 15:45 62 15 113/61 97 04/24/16 15:43 62 13 113/61 100 04/24/16 15:41 62 12 113/61 100 04/24/16 15:39 70 12 113/61 100 04/24/16 15:37 59 L 12 113/61 100 04/24/16 15:35 69 16 113/61 100 04/24/16 15:33 73 10 L 113/61 99 04/24/16 15:31 79 13 113/61 100 04/24/16 15:29 61 11 L 113/61 100 04/24/16 15:27 61 8 L 113/61 100 04/24/16 15:25 68 16 113/61 100 04/24/16 15:23 59 L 11 L 113/61 100 04/24/16 15:21 61 12 113/61 99 04/24/16 15:19 73 13 113/61 100 04/24/16 15:17 16 113/61 100 Intake and Output 04/24/16 04/25/16 04/25/16 22:59 06:59 14:59 Intake Total 480 632 1107 Output Total 900 Balance 476 -100 1000 Intake: IV 599 454 3162 CLEOCIN 900 MG/50 mL 900 50 50 mg In 50 ml @ 100 mls/hr IV Q8H [facility] Rx#:[id number] D5lr 1,000 ml @ 75 mls/hr 420 853 2848 IV DIRECT JOHNIE Rx#: [id number] Garamycin 240 mg In NaCl 106 0.9% 100 ml @ 212 mls/hr IV Q24H [facility] Rx#:[id number] Intake, Free Water 240 Output: Urine 900 Void 900 Other: Total, Output Amount 400 Voiding Method Toilet Toilet Toilet Weight 52.163 kg - Exam Breasts: Present: normal Cardiovascular: Present: Regular rate, Normal S1, Normal S2 Lungs: Present: Clear to auscultation, Normal air movement Abdomen: Present: normal appearance, soft, tenderness, normal bowel sounds. Absent: distention, guarding Vulva: both: normal Uterus: Present: tenderness Extremities: Present: normal Deep Tendon Reflex Grade: Normal +2 - Labs Labs: Abnormal lab results 04/25/16 Range/Units 06:09 Lymph % (Auto) 41.3 H (13.4-35.0) %
--- NOTE | 2016-04-25 12:13 | Consultation ---
History of Present Illness Consult date: 04/25/16 Reason for consult: abdominal pain Chief complaint: Abdominal Pain. - History of present illness History of present illness: 26 y/o female with abdominal pain admitted with diagnosis of PID. We were consulted to r/o appendicitis. Past History Past Medical History: No medical history Past Surgical History: Social history: single. denies: smoking, alcohol abuse Medications and Allergies Allergies Allergy/AdvReac Type Severity Reaction Status Date / Time aspirin Allergy Anaphylaxis Verified 04/24/16 06:40 ibuprofen [From Motrin] Allergy Unknown Verified 04/24/16 06:40 naproxen [From Naprosyn] Allergy Vomiting Verified 04/24/16 06:40 vancomycin Allergy Unknown Verified 04/24/16 06:40 Home Medications Medication Instructions Recorded Confirmed Last Taken Type No Known Home Medications [No 04/25/16 04/25/16 Unknown History Reported Home Medications] Active Meds: Active Medications Acetaminophen/Hydrocodone Bitart ([place] 5/325) 1 each PO Q8H PRN PRN Reason: Pain, Moderate (4-6) Clindamycin HCl (Cleocin 900 Mg/50 Ml) 900 mg in 50 mls @ 100 mls/hr IV Q8H JOHNIE Last Admin: 04/25/16 06:45 Dose: 100 mls/hr Dextrose/Lactated Ringer's (D5lr) 1,000 mls @ 75 mls/hr IV DIRECT JOHNIE Last Admin: 04/25/16 08:40 Dose: 75 mls/hr Gentamicin Sulfate 240 mg/ (Sodium Chloride) 106 mls @ 212 mls/hr IV Q24H JOHNIE Last Admin: 04/24/16 20:16 Dose: 212 mls/hr Morphine Sulfate (Morphine) 2 mg IV Q3H PRN PRN Reason: Pain Last Admin: 04/25/16 10:00 Dose: 2 mg Review of Systems All systems: negative (present complaint.) Exam Vital Signs Temp Pulse Resp BP Pulse Ox 98.4 F 91 H 22 126/90 100 04/24/16 06:34 04/24/16 06:34 04/24/16 06:34 04/24/16 06:34 04/24/16 06:34 - General physical appearance Positive: well developed, well nourished, no distress - Eyes Positive: PERRL, normal occular movement - ENT Positive: normal pinna, normal nares, normal mucosa, no hearing loss, no congestion - Neck Positive: no masses, no bruits, trachea midline, no venous distension - Respiratory Positive: normal expansion, normal respiratory effort, clear to auscultation - Cardiovascular Rhythm: regular Heart Sounds: Present: S1 & S2 - Extremities Extremities: no ischemia, No edema - Breasts Breasts: deferred - Abdomen Abdomen: Present: soft, tender (in the lower quadrants.), bowel sounds normal. Absent: distended, masses, rebound, guarding - Genitourinary Female Genitourinary: deferred - Neurologic Neurologic: alert and oriented to time, place and person, motor strength and sensation are grossly intact - Musculoskeletal normal gait, normal posture Results - Labs 04/25/16 06:09 04/24/16 04:40 Abnormal lab results 04/25/16 Range/Units 06:09 Lymph % (Auto) 41.3 H (13.4-35.0) % - Imaging CT scan - abdomen: report reviewed, image reviewed (with Dr. Arango. no appendicitis.) Assessment and Plan IMP: PID, No appendicitis. RECOMMENDATIOS: Home per SECURITY SYSTEM ANALYST. Will see as needed.
[2016-04-25] MEDS: NORCO 5/325 PO PRN ×2 (12:25→20:13)
[2016-04-25] MEDS ORDERED: D5LR 1,000 ML IV SCH (15:00)
[2016-04-25] MEDS: GARAMYCIN 240 MG in NACL 0.9% 100 ML IV SCH (20:12)
[2016-04-26 05:36] LABS: Basophils % (Auto) 0.7 % (0.0-1.8); Eosinophils % (Auto) 4.7 % (0.0-4.3); Hematocrit 31.2 % (30.3-42.9); Hemoglobin 10.4 gm/dl (10.1-14.3); Mean Corpuscular HGB Conc 34 % (30-34); Mean Corpuscular Hemoglobin 30 pg (28-32); Mean Corpuscular Volume 89 fl (79-97); Platelet Count 220 K/mm3 (140-440); Red Cell Distribution Width 14.4 % (13.2-15.2); White Blood Count 6.1 K/mm3 (4.5-11.0)
[2016-04-26] MEDS: CLEOCIN 900 MG/50 mL 900 MG/50 ML BAG IV SCH ×2 (06:25→14:00)
--- NOTE | 2016-04-26 07:10 | Progress Note ---
Assessment and Plan A: HD#3 admitted for inpatient treatment of PID P: Routine care. Discharge home today with follow up in [address] Obando. Continue antibiotics for 14 days. Subjective - Subjective Date of service: 04/26/16 Principal diagnosis: PID, pelvic pain Interval history: Pt feeling much better today and requests discharge home. She has not tolerated regular diet. Patient reports: appetite normal, pain well controlled, flatus, ambulating normally, nauseated Objective - Vital Signs Latest vital signs: Vital Signs Temp Pulse Resp Resp BP 04/26/16 04:55 98.4 F 60 20 135/74 04/26/16 01:05 98.4 F 59 L 20 142/71 04/25/16 23:06 18 04/25/16 20:40 97.9 F 66 20 147/93 04/25/16 20:13 18 04/25/16 20:00 18 04/25/16 19:50 18 04/25/16 17:00 97.9 F 56 L 18 129/78 04/25/16 12:25 20 04/25/16 11:28 98.3 F 62 18 136/81 04/25/16 10:00 20 04/25/16 08:35 20 04/25/16 08:19 97.5 F L 73 18 140/79 Intake and Output 04/25/16 04/26/16 04/26/16 22:59 06:59 14:59 Intake Total 870 290 Output Total 300 550 Balance 570 -260 Intake: IV 150 50 CLEOCIN 900 MG/50 mL 900 50 mg In 50 ml @ 100 mls/hr IV Q8H JOHNIE Rx#:[id number] D5lr 1,000 ml @ 75 mls/hr 150 IV DIRECT JOHNIE Rx#: [id number] Oral 480 Intake, Free Water 240 240 Output: Urine 300 550 Void 300 550 Other: Total, Intake Amount 480 Total, Output Amount 300 400 Voiding Method Toilet - Exam Breasts: Present: deferred Cardiovascular: Present: Regular rate Lungs: Present: Clear to auscultation Abdomen: Present: normal appearance, soft, tenderness (minimal ) Extremities: Present: normal - Labs Labs: Abnormal lab results 04/26/16 Range/Units 05:03 RBC 3.50 L (3.65-5.03) M/mm3 Lymph % (Auto) 47.7 H (13.4-35.0) % Eos % (Auto) 4.7 H (0.0-4.3) %
--- NOTE | 2016-04-26 07:13 | Discharge Summary ---
Providers - Providers Date of Admission: 04/24/16 14:03 Date of discharge: 04/26/16 Attending physician: IDRIS OBANDO MD Primary care physician: [employer] Hospitalization Reason for admission: other (pelvic pain, PID ) Hospital course: Patient was admitted for inpatient treatment of pelvic inflammatory disease and pelvic pain. She received IV pain medication as well as IVF antibiotics and was much improved by hospital day #3. On hospital day #3 she was discharged home with oral robotics and pain medication with instructions to follow-up in one week with Dr. Obando. Condition at discharge: Good Disposition: DISCHARGED TO HOME OR SELFCARE - Discharge Diagnoses (1) Pelvic inflammatory disease Status: Acute (2) Abdominal pain Status: Acute Qualifiers: Abdominal location: lower abdomen, unspecified Qualified Code(s): R10.30 - Lower abdominal pain, unspecified Plan - Discharge Medications Prescriptions: Doxycycline [Vibramycin CAP] 100 mg PO Q12HR #28 capsule HYDROcodone/APAP 5-325 [[place] 5/325] 1 each PO Q6HR PRN #30 tablet PRN Reason: Pain metroNIDAZOLE [Flagyl TAB] 500 mg PO Q12H #28 tablet Ondansetron [Zofran Odt] 4 mg PO Q12H PRN #10 tab.rapdis PRN Reason: Nausea - Provider Discharge Summary Activity: no sex for 6 weeks, no heavy lifting 4 weeks, no strenuous exercise Diet: routine Instructions: routine Additional instructions: [] Smoking cessation referral if applicable(refer to patient education folder for contact #) [] Refer to [facility] Booklet Call your doctor immediately for: * Fever > 100.5 * Heavy vaginal bleeding ( >1 pad per hour) * Severe persistent headache * Shortness of breath * Reddened, hot, painful area to leg or breast * Drainage or odor from incision. * Keep incision clean and dry at all times and follow doctor's instructions regarding bathing/showering - Follow up plan Follow up: PRIMARY CAREMD [Primary Care Provider] - 3-5 Days IDRIS OBANDO MD [Staff Physician] - 7 Days Forms: Work/School Release Form
[2016-04-26] MEDS: NORCO 5/325 PO PRN ×2 (07:34→13:59)
[2016-04-26] MEDS ORDERED: NORCO 5/325 PO PRN (12:00)
[2016-04-26] MEDS ORDERED: ZOFRAN IV PRN (12:00)
[2016-04-26 12:18] VITALS: BP 144/78
== END 2016-04-26 15:55 | disposition home or self-care (01) | DRG 759 ==
LOC: ED 04:20 → 3A 14:03 → OB 17:15
PROVIDERS: ADMIT Internal Medicine; ATTEND Obstetrics & Gynecology
DX: N73.9 Female pelvic inflammatory disease, unspecified (principal); J45.909 Unspecified asthma, uncomplicated; Z88.8 Allergy status to other drugs, medicaments and biological substances; Z83.3 Family history of diabetes mellitus; Z82.49 Family history of ischemic heart disease and other diseases of the circulatory system; Z84.89 Family history of other specified conditions; Z88.6 Allergy status to analgesic agent
CPT/HCPCS: 36415; 74177; 76830; 80048; 80074; 81001; 81025; 82140; 82150; 83690; 85025; 87210; 87591; 87806; 93975; 96361; 96365; 96375; 96376; J0290; J0696; J1170; J1580; J2270; J2405; J7030; J7121; Q0162; Q9967

== ENCOUNTER 2016-10-16 18:39 | Emergency (ER) | payer OTHER ==
[2016-10-16 18:58] VITALS: BP 146/93
[2016-10-16 19:21] LABS: Basophils % (Auto) 0.4 % (0.0-1.8); Eosinophils % (Auto) 1.5 % (0.0-4.3); Hemoglobin 12.7 gm/dl (10.1-14.3); Mean Corpuscular HGB Conc 34 % (30-34); Mean Corpuscular Hemoglobin 31 pg (28-32); Mean Corpuscular Volume 90 fl (79-97); Platelet Count 262 K/mm3 (140-440); Red Cell Distribution Width 13.6 % (13.2-15.2); White Blood Count 7.4 K/mm3 (4.5-11.0)
[2016-10-16 19:36] LABS: Anion Gap 15 mmol/L; BUN/Creatinine Ratio 17.14; Blood Urea Nitrogen 12 mg/dL (7-17); Calcium 9.2 mg/dL (8.4-10.2); Carbon Dioxide 27 mmol/L (22-30); Chloride 101.2 mmol/L (98-107); Glucose 94 mg/dL (65-100); Potassium 3.6 mmol/L (3.6-5.0); Sodium 140 mmol/L (137-145)
[2016-10-16 21:20] LABS: Bacteria,Urine 1+ /HPF (Negative); Bilirubin,Urine NEG (Negative); Blood,Urine LG (Negative); Ketones,Urine NEG (Negative); Leukocyte Esterase,Urine NEG (Negative); Mucus,Urine 3+ /HPF; Nitrite,Urine NEG (Negative); Protein,Urine <15 mg/dL mg/dL (Negative); Urobilinogen,Urine < 2.0 mg/dL (<2.0)
== END 2016-10-16 22:38 | disposition left against medical advice (07) ==
LOC: ED 18:39
DX: Z53.21 Procedure and treatment not carried out due to patient leaving prior to being seen by health care provider (principal)
CPT/HCPCS: 36415; 80048; 81001; 82962; 85025

== ENCOUNTER 2017-03-24 20:43 | Emergency (ER) | payer OTHER ==
[2017-03-24 20:54] VITALS: BP 145/98
[2017-03-24 21:43] LABS: Basophils % (Auto) 0.4 % (0.0-1.8); Eosinophils # (Auto) 0.1 K/mm3 (0.0-0.4); Eosinophils % (Auto) 1.9 % (0.0-4.3); Hematocrit 39.7 % (30.3-42.9); Hemoglobin 13.5 gm/dl (10.1-14.3); Lymphocytes # (Auto) 2.9 K/mm3 (1.2-5.4); Lymphocytes % (Auto) 43.3 % (13.4-35.0); Mean Corpuscular HGB Conc 34 % (30-34); Mean Corpuscular Hemoglobin 31 pg (28-32); Mean Corpuscular Volume 92 fl (79-97); Monocytes # (Auto) 0.4 K/mm3 (0.0-0.8); Monocytes % (Auto) 6.3 % (0.0-7.3); Platelet Count 279 K/mm3 (140-440); Red Blood Count 4.31 M/mm3 (3.65-5.03); Red Cell Distribution Width 13.5 % (13.2-15.2)
[2017-03-24 22:05] LABS: BUN/Creatinine Ratio 23; Blood Urea Nitrogen 14 mg/dL (7-17); Hemolysis Index 10
== END 2017-03-24 23:00 | disposition home or self-care (01) ==
LOC: ED 20:43
DX: R07.9 Chest pain, unspecified (principal); Z53.21 Procedure and treatment not carried out due to patient leaving prior to being seen by health care provider
CPT/HCPCS: 36415; 80048; 84484; 85025; 93005; 93010

== ENCOUNTER 2017-06-04 19:11 | Emergency (ER) | payer SELFPAY ==
[2017-06-04] MEDS ORDERED: BENADRYL ONE (19:22)
[2017-06-04 19:27] VITALS: BP 142/82
[2017-06-04] MEDS ORDERED: BENADRYL IM ONE (19:32)
[2017-06-04] MEDS ORDERED: PEPCID PO ONE (19:34)
== END 2017-06-04 20:11 | disposition left against medical advice (07) ==
LOC: ED 19:11
DX: R07.0 Pain in throat (principal); Z53.21 Procedure and treatment not carried out due to patient leaving prior to being seen by health care provider
CPT/HCPCS: J1200; J2930

== ENCOUNTER 2017-09-23 20:31 | Emergency (ER) | payer SELFPAY ==
[2017-09-23] MEDS ORDERED: ASPIRIN PO ONE (20:46)
[2017-09-23 21:11] LABS: Basophils % (Auto) 0.5 % (0.0-1.8); Eosinophils # (Auto) 0.2 K/mm3 (0.0-0.4); Eosinophils % (Auto) 2.2 % (0.0-4.3); Hematocrit 38.3 % (30.3-42.9); Hemoglobin 13.1 gm/dl (10.1-14.3); Lymphocytes # (Auto) 3.8 K/mm3 (1.2-5.4); Lymphocytes % (Auto) 42.8 % (13.4-35.0); Mean Corpuscular HGB Conc 34 % (30-34); Mean Corpuscular Hemoglobin 32 pg (28-32); Mean Corpuscular Volume 92 fl (79-97); Monocytes # (Auto) 0.7 K/mm3 (0.0-0.8); Monocytes % (Auto) 7.5 % (0.0-7.3); Platelet Count 298 K/mm3 (140-440); Red Blood Count 4.14 M/mm3 (3.65-5.03); Red Cell Distribution Width 13.4 % (13.2-15.2)
[2017-09-23 21:16] LABS: Bilirubin,Urine NEG (Negative); Blood,Urine NEG (Negative); Color,Urine Yellow (Yellow); Mucus,Urine 2+ /HPF; Protein,Urine <15 mg/dL mg/dL (Negative); Urobilinogen,Urine < 2.0 mg/dL (<2.0)
[2017-09-23 21:17] LABS: HCG Qualitative,Urine Negative (Negative)
[2017-09-23 21:28] LABS: BUN/Creatinine Ratio 13; Blood Urea Nitrogen 9 mg/dL (7-17); Calcium 8.9 mg/dL (8.4-10.2); Hemolysis Index 2
--- NOTE | 2017-09-23 22:54 | Emergency Department Report ---
HPI - General Chief Complaint: Chest Pain Time Seen by Provider: 09/23/17 22:38 - HPI HPI: Room 24 The patient is a 27-year-old female presenting with a chief complaint of palpitations. The patient states this evening while at rest she felt like her heart skipped a beat for split second. The patient states she tried to relax and calm down for 5 minutes later it happened again. The patient states she had 4-5 more episodes this evening prompting her to come to the ED for evaluation. Patient denied ever having chest pain shortness of breath nausea or vomiting or episodes. Patient denies any history of unexplained weight loss or fever. Patient states she had a similar episode in February left the hospital R2 evaluation. 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 Patient is currently asymptomatic Location: Cardiovascular system Duration: [See above] Quality: Palpitation Severity: Moderate Modifying factors: [see above] Context: [see above] Mode of transportation: [not driving] ED Past Medical Hx - Past Medical History Hx Asthma: Yes - Surgical History Additional Surgical History: - Family History Family history: no significant - Social History Smoking Status: Current Some Day Smoker Substance Use Type: None (denies illicit drug use), Alcohol (occasional) - Medications Home Medications: Home Medications Medication Instructions Recorded Confirmed Last Taken Type No Known Home Medications [No 09/23/17 09/23/17 Unknown History Reported Home Medications] ED Review of Systems ROS: Stated complaint: RAPID HEARTBEAT/CP Other details as noted in HPI Constitutional: denies: diaphoresis Eyes: denies: eye pain ENT: denies: throat pain Respiratory: denies: shortness of breath Cardiovascular: palpitations. denies: chest pain Endocrine: denies: unexplained weight loss Gastrointestinal: denies: abdominal pain, nausea, vomiting Genitourinary: denies: dysuria Musculoskeletal: denies: back pain Skin: denies: change in color Neurological: denies: headache Physical Exam - Physical Exam Vital Signs: Vital Signs 09/23/17 09/23/17 20:31 20:41 Temperature 98.1 F 98.1 F Pulse Rate 107 H 107 H Respiratory 22 20 Rate Blood Pressure 152/91 152/71 O2 Sat by Pulse 99 100 Oximetry Physical Exam: GENERAL: The patient is well-developed well-nourished female lying on stretcher not appear to be in acute distress. [] HEENT: Normocephalic. Atraumatic. Extraocular motions are intact. Patient has moist mucous membranes. NECK: Supple. Trachea midline CHEST/LUNGS: Clear to auscultation. There is no respiratory distress noted. HEART/CARDIOVASCULAR: Regular. There is no tachycardia. There is no gallop rub or murmur. ABDOMEN: Abdomen is soft, nontender. Patient has normal bowel sounds. There is no abdominal distention. SKIN: There is no rash. There is no edema. There is no diaphoresis. NEURO: The patient is awake, alert, and oriented. The patient is cooperative. The patient has normal speech MUSCULOSKELETAL: There is no evidence of acute injury. ED Course Vital Signs 09/23/17 09/23/17 20:31 20:41 Temperature 98.1 F 98.1 F Pulse Rate 107 H 107 H Respiratory 22 20 Rate Blood Pressure 152/91 152/71 O2 Sat by Pulse 99 100 Oximetry ED Medical Decision Making - Lab Data Result diagrams: 09/23/17 20:50 09/23/17 20:50 Laboratory Tests 09/23/17 09/23/17 09/23/17 20:50 20:50 21:00 WBC 8.8 RBC 4.14 Hgb 13.1 Hct 38.3 MCV 92 MCH 32 MCHC 34 RDW 13.4 Plt Count 298 Lymph % (Auto) 42.8 H Jerome % (Auto) 7.5 H Eos % (Auto) 2.2 Baso % (Auto) 0.5 Lymph # 3.8 Jerome # 0.7 Eos # 0.2 Baso # 0.0 Seg Neutrophils % 47.0 Seg Neutrophils # 4.2 D-Dimer Sodium 136 L Potassium 3.9 Chloride 98.5 Carbon Dioxide 23 Anion Gap 18 BUN 9 Creatinine 0.7 Estimated GFR > 60 BUN/Creatinine Ratio 13 Glucose 103 H Calcium 8.9 Troponin T < 0.010 TSH Free T4 Urine Color Yellow Urine Turbidity Clear Urine pH 7.0 Ur Specific [place] 1.024 Urine Protein <15 mg/dl Urine Glucose (UA) Neg Urine Ketones Neg Urine Blood Neg Urine Nitrite Neg Urine Bilirubin Neg Urine Urobilinogen < 2.0 Ur Leukocyte Esterase Neg Urine WBC (Auto) 4.0 Urine RBC (Auto) 6.0 U Epithel Cells (Auto) 4.0 Urine Mucus 2+ Urine HCG, Qual Negative 09/23/17 09/23/17 09/24/17 23:11 23:11 00:20 WBC RBC Hgb Hct MCV MCH MCHC RDW Plt Count Lymph % (Auto) Jerome % (Auto) Eos % (Auto) Baso % (Auto) Lymph # Jerome # Eos # Baso # Seg Neutrophils % Seg Neutrophils # D-Dimer < 135.00 Sodium Potassium Chloride Carbon Dioxide Anion Gap BUN Creatinine Estimated GFR BUN/Creatinine Ratio Glucose Calcium Troponin T < 0.010 TSH 1.600 Free T4 1.08 Urine Color Urine Turbidity Urine pH Ur Specific [place] Urine Protein Urine Glucose (UA) Urine Ketones Urine Blood Urine Nitrite Urine Bilirubin Urine Urobilinogen Ur Leukocyte Esterase Urine WBC (Auto) Urine RBC (Auto) U Epithel Cells (Auto) Urine Mucus Urine HCG, Qual - EKG Data -: EKG Interpreted by Me EKG shows normal: sinus rhythm Rate: normal - EKG Data When compared to previous EKG there are: previous EKG unavailable Interpretation: other (no ischemic changes seen) - Radiology Data Radiology results: image reviewed (chest x-ray) interpreted by me: Chest x-ray-no focal infiltrates, no pneumothorax - Differential Diagnosis palpitations, hyperthyroidism, PVCs, PACs, PE, Critical care attestation.: If time is entered above; I have spent that time in minutes in the direct care of this critically ill patient, excluding procedure time. ED Disposition Clinical Impression: Palpitations Disposition: DC-01 TO HOME OR SELFCARE Is pt being admited?: No Does the pt Need Aspirin: No Condition: Stable Instructions: Supraventricular Tachycardia (ED), Palpitations (ED) Additional Instructions: Return to the emergency department immediately should you develop worsening symptoms, fever, inability to tolerate food or liquid or any other concerns. Referrals: PRIMARY CARE, [Primary Care Provider] - 3-5 Days BRANDO REAL MD [Staff Physician] - [facility] (Dr. Real is a metal patternmaker apprentice. Please follow-up with him for further evaluation) Time of Disposition: 01:11
[2017-09-24 01:00] LABS: Free T4 (Free Thyroxine) 1.08 ng/dL (0.76-1.46)
--- NOTE | 2017-09-24 01:08 | XRay Report ---
FINAL REPORT EXAM: XR CHEST ROUTINE 2V HISTORY: palpitations TECHNIQUE: PA and lateral views of the chest were obtained. PRIORS: None. FINDINGS: No lobar consolidation. Subtle right basilar opacities. There is blunting of the right costophrenic angle, probable small pleural effusion. No pneumothorax. Cardiac silhouette and mediastinal structures are unremarkable. No acute osseous abnormality identified. IMPRESSION: Subtle, right basilar opacities and small pleural effusion. Considered early pneumonia and parapneumonic effusion.
[2017-09-24 01:16] VITALS: BP 139/79
== END 2017-09-24 01:20 | disposition home or self-care (01) ==
LOC: ED 20:31
DX: R00.2 Palpitations (principal); J45.909 Unspecified asthma, uncomplicated; F17.200 Nicotine dependence, unspecified, uncomplicated; Z88.6 Allergy status to analgesic agent; Z88.1 Allergy status to other antibiotic agents
CPT/HCPCS: 36415; 71046; 80048; 81001; 81025; 84439; 84443; 84484; 85025; 85379; 93005; 93010; 99284